=== PATIENT | male | born 1965 | race African-American/Black ===

== ENCOUNTER 2017-01-07 22:20 | Emergency (ER) | payer MEDICAID ==
[~2017-01-07] VITALS: Ht 172.7 cm; Wt 70.5 kg
[2017-01-07] MEDS ORDERED: OXYcodone/APAP 5/325MG TABLET PO ONE (23:30)
[2017-01-07] MEDS ORDERED: CYCLOBENZAPRINE 10 MG TABLET PO ONE (23:30)
[2017-01-07] MEDS ORDERED: CEFTRIAXONE 250 MG IM ONE (23:30)
[2017-01-07] MEDS ORDERED: ONDANSETRON ODT 4 MG PO ONE (23:30)
[2017-01-07] MEDS ORDERED: AZITHROMYCIN 500 MG TABLET PO ONE (23:30)
[2017-01-07] MEDS ORDERED: OXYcodone/APAP 5/325MG TABLET ONE (23:58)
[2017-01-07] MEDS ORDERED: CYCLOBENZAPRINE 10 MG TABLET ONE (23:58)
[2017-01-07] MEDS ORDERED: ONDANSETRON ODT 4 MG ONE (23:59)
[2017-01-07] MEDS ORDERED: CEFTRIAXONE 250 MG ONE (23:59)
[2017-01-07] MEDS ORDERED: AZITHROMYCIN 250 MG TABLET ONE (23:59)
[2017-01-08 01:27] VITALS: BP 139/87
== END 2017-01-08 01:29 | disposition home or self-care (01) ==
LOC: ED 01-08 00:38
DX: N34.1 Nonspecific urethritis (principal); R07.89 Other chest pain; M62.830 Muscle spasm of back; F17.200 Nicotine dependence, unspecified, uncomplicated; Z88.6 Allergy status to analgesic agent
CPT/HCPCS: 81001; 87086; 93005; 96372; 99285; J0696; Q0162; 87077

== ENCOUNTER 2017-01-17 06:51 | Emergency (ER) | payer MEDICAID ==
[~2017-01-17] VITALS: Ht 172.7 cm; Wt 69.7 kg
[2017-01-17 06:53] VITALS: BP 128/85
== END 2017-01-17 08:01 | disposition home or self-care (01) ==
LOC: ED 07:18
DX: R22.42 Localized swelling, mass and lump, left lower limb (principal); M79.652 Pain in left thigh; G89.29 Other chronic pain
CPT/HCPCS: 99283

== ENCOUNTER 2017-03-05 07:01 | Emergency (ER) | payer MEDICAID ==
[~2017-03-05] VITALS: Ht 172.7 cm; Wt 70.0 kg
[2017-03-05] MEDS ORDERED: ONDANSETRON ODT 4 MG PO ONE (08:00)
[2017-03-05] MEDS ORDERED: ONDANSETRON ODT 4 MG ONE (08:06)
[2017-03-05 08:27] LABS: HEMATOCRIT 37.4 % (39.2-51.8); HEMOGLOBIN 12.4 g/dL (13.7-18.0); WHITE BLOOD COUNT 4.5 x10^3/uL (3.4-10)
[2017-03-05 08:39] LABS: ASPARTATE AMINO TRANSFERASE 42 U/L (15-37); BLOOD UREA NITROGEN 10 mg/dL (7-18)
[2017-03-05 09:22] VITALS: BP 110/69
== END 2017-03-05 09:26 | disposition home or self-care (01) ==
LOC: ED 07:48
DX: R10.84 Generalized abdominal pain (principal); R11.0 Nausea
CPT/HCPCS: 36415; 80053; 83690; 85025; 93005; 99285; Q0162

== ENCOUNTER 2017-03-27 22:54 | Emergency (ER) | payer MEDICAID ==
[~2017-03-27] VITALS: Ht 172.7 cm; Wt 69.7 kg
[2017-03-27 23:08] VITALS: BP 138/96
[2017-03-27] MEDS ORDERED: ACETAMINOPHEN 325 MG TABLET ONE (23:43)
[2017-03-28] MEDS ORDERED: ACETAMINOPHEN 325 MG TABLET PO ONE
== END 2017-03-27 23:50 | disposition home or self-care (01) ==
LOC: ED 23:47
DX: N34.2 Other urethritis (principal); F15.10 Other stimulant abuse, uncomplicated; Z91.19 Patient's noncompliance with other medical treatment and regimen; Z59.0 Homelessness
CPT/HCPCS: 99282

== ENCOUNTER 2017-03-28 10:35 | Emergency (ER) | payer MEDICAID ==
[~2017-03-28] VITALS: Ht 172.7 cm; Wt 67.0 kg
[2017-03-28 10:42] VITALS: BP 128/84
== END 2017-03-28 11:18 | disposition home or self-care (01) ==
LOC: ED 11:00
DX: Z76.0 Encounter for issue of repeat prescription (principal)
CPT/HCPCS: 99283

== ENCOUNTER 2017-05-01 02:46 | Emergency (ER) | payer MEDICAID ==
[~2017-05-01] VITALS: Ht 172.7 cm; Wt 66.1 kg
[2017-05-01] MEDS ORDERED: ACETAMINOPHEN 325 MG TABLET ONE (03:20)
[2017-05-01] MEDS ORDERED: ACETAMINOPHEN 325 MG TABLET PO ONE (03:30)
[2017-05-01 03:32] LABS: RAPID INFLUENZA A POSITIVE (Negative); RAPID INFLUENZA B Negative (Negative)
[2017-05-01 04:08] VITALS: BP 126/86
== END 2017-05-01 04:08 | disposition home or self-care (01) ==
LOC: ED 03:44
DX: J09.X2 Influenza due to identified novel influenza A virus with other respiratory manifestations (principal); J02.9 Acute pharyngitis, unspecified
CPT/HCPCS: 71046; 87400; 93005

== ENCOUNTER 2017-05-12 01:27 | Emergency (ER) | payer MEDICAID ==
[~2017-05-12] VITALS: Ht 172.7 cm; Wt 69.3 kg
[2017-05-12 01:28] VITALS: BP 134/87
== END 2017-05-12 04:23 | disposition home or self-care (01) ==
LOC: ED 02:29
DX: M79.662 Pain in left lower leg (principal); S86.212A Strain of muscle(s) and tendon(s) of anterior muscle group at lower leg level, left leg, initial encounter; X58.XXXA Exposure to other specified factors, initial encounter; Y93.89 Activity, other specified; Y92.89 Other specified places as the place of occurrence of the external cause; Y99.8 Other external cause status; I88.8 Other nonspecific lymphadenitis
CPT/HCPCS: 99284

== ENCOUNTER 2017-05-12 10:37 | Emergency (ER) | payer MEDICAID, OTHER ==
[~2017-05-12] VITALS: Ht 172.7 cm; Wt 67.2 kg
[2017-05-12 10:39] VITALS: BP 138/92
[2017-05-12] MEDS ORDERED: ACETAMINOPHEN 325 MG TABLET PO ONE (12:00)
[2017-05-12] MEDS ORDERED: ACETAMINOPHEN 500 MG TABLET PO ONE (12:00)
[2017-05-12] MEDS ORDERED: ACETAMINOPHEN 500 MG TABLET ONE (12:03)
== END 2017-05-12 12:14 | disposition home or self-care (01) ==
LOC: ED 12:00
DX: M79.662 Pain in left lower leg (principal); Z88.6 Allergy status to analgesic agent
CPT/HCPCS: 99282

== ENCOUNTER 2017-07-18 23:48 | Emergency (ER) | payer MEDICAID ==
[~2017-07-18] VITALS: Ht 172.7 cm; Wt 68.3 kg
[2017-07-18 23:50] VITALS: BP 134/89
== END 2017-07-19 00:11 | disposition left against medical advice (07) ==
LOC: ED 07-19 00:05
DX: R05 Cough (principal); R09.81 Nasal congestion; Z53.21 Procedure and treatment not carried out due to patient leaving prior to being seen by health care provider

== ENCOUNTER 2017-10-16 23:07 | Emergency (ER) | payer MEDICAID ==
[~2017-10-16] VITALS: Ht 172.7 cm; Wt 68.0 kg
[2017-10-16 23:18] VITALS: BP 112/82
[2017-10-17 00:17] LABS: ALANINE AMINOTRANSFERASE 30 U/L (12-78); ALBUMIN 3.5 g/dL (3.4-5.0); ANION GAP 9 mmol/L (5-15); CALCIUM 9.3 mg/dL (8.5-10.1); CHLORIDE 105 mmol/L (98-107)
[2017-10-17 00:20] LABS: ALKALINE PHOSPHATASE 101 U/L (45-117); BILIRUBIN,TOTAL 0.5 mg/dL (0.2-1.0)
[2017-10-17 01:57] LABS: BASOPHILS # (AUTO) 0.03 x10^3/uL (0-0.1); BASOPHILS % (AUTO) 1 % (0-1); EOSINOPHILS # (AUTO) 0.02 x10^3/uL (0-0.4); EOSINOPHILS % (AUTO) 0 % (1-7); LYMPHOCYTES # (AUTO) 1.49 x10^3/uL (1-3.4); LYMPHOCYTES % (AUTO) 23 % (22-44); MD NO; MEAN CORPUSCULAR HEMOGLOBIN 28.8 pg (27.5-34.5); MEAN CORPUSCULAR HGB CONC 33.2 g/dL (33.2-36.2); MEAN CORPUSCULAR VOLUME 86.7 fL (81-97); MEAN PLATELET VOLUME 8.3 fL (7.4-10.4); MONOCYTES # (AUTO) 0.42 x10^3/uL (0.2-0.8); MONOCYTES % (AUTO) 7 % (2-9); NEUTROPHILS # (AUTO) 4.49 x10^3/uL (1.8-6.8); NEUTROPHILS % (AUTO) 70 % (42-75); PLATELET COUNT 179 x10^3/uL (130-400); RED BLOOD COUNT 4.68 x10^6/uL (4.38-5.82); RED CELL DISTRIBUTION WIDTH 15.6 % (9.4-14.8)
== END 2017-10-17 00:40 | disposition left against medical advice (07) ==
LOC: ED 23:34
DX: S61.412A Laceration without foreign body of left hand, initial encounter (principal); S39.91XA Unspecified injury of abdomen, initial encounter; S39.93XA Unspecified injury of pelvis, initial encounter; Z88.6 Allergy status to analgesic agent; W19.XXXA Unspecified fall, initial encounter; Y93.89 Activity, other specified; Y99.8 Other external cause status; Y92.89 Other specified places as the place of occurrence of the external cause
CPT/HCPCS: 36415; 80053; 83690; 85025; 99281; 99284

== ENCOUNTER 2019-06-08 03:31 | Emergency (ER) | payer MEDICAID ==
[~2019-06-08] VITALS: Ht 167.6 cm; Wt 74.9 kg
[2019-06-08 03:36] VITALS: BP 148/99
== END 2019-06-08 04:26 | disposition home or self-care (01) ==
LOC: ED 04:25
DX: K40.90 Unilateral inguinal hernia, without obstruction or gangrene, not specified as recurrent (principal); F17.210 Nicotine dependence, cigarettes, uncomplicated
CPT/HCPCS: 99284

== ENCOUNTER 2019-06-12 21:21 | Emergency (ER) | payer MEDICAID | END 2019-06-12 21:46 | LOC: ED 21:42 | DX: R42 Dizziness and giddiness (principal); Z53.21 Procedure and treatment not carried out due to patient leaving prior to being seen by health care provider ==

== ENCOUNTER 2019-06-13 03:12 | Emergency (ER) | payer MEDICAID ==
[~2019-06-13] VITALS: Ht 172.7 cm; Wt 71.9 kg
[2019-06-13 03:15] VITALS: BP 132/86
--- NOTE | 2019-06-13 03:35 | NUR ---
PT STATED TO THIS RN THAT HE LEFT SOME MONEY UNDER THE STAIRS AT HIS MOT[facility] AND NEEDED TO LEAVE TO GET IT. PT WAS INFORMED IF HE LEFT THE EMERGENCY DEPARTMENT HE WOULD NEED TO CHECK BACK IN WHEN HE RETURNED. PT KEPT WALKING OUT THE AMBULANCE BAY
== END 2019-06-13 03:36 ==
LOC: ED 03:30
DX: R11.10 Vomiting, unspecified (principal); Z53.21 Procedure and treatment not carried out due to patient leaving prior to being seen by health care provider

== ENCOUNTER 2019-07-11 06:59 | Emergency (ER) | payer MEDICAID ==
--- NOTE | 2019-07-11 07:19 | NUR ---
Report from Heather SWEET, pt was BIB by [facility], per [facility] c/o of LLQ abd pain, no N/V/D, FSBS 91. Pt currently refusing to talk to ETHAN Bronson or cooperate w/ provider assessment.
--- NOTE | 2019-07-11 08:00 | NUR ---
Late Entry: Pt resting in gurney, even and unabored respirations, eyes closed, call light within reach, NAD, WCTM.
[2019-07-11 08:09] LABS: BASOPHILS # (AUTO) 0.01 x10^3/uL (0-0.1); BASOPHILS % (AUTO) 0 % (0-1); EOSINOPHILS # (AUTO) 0.01 x10^3/uL (0-0.4); EOSINOPHILS % (AUTO) 0 % (1-7); LYMPHOCYTES % (AUTO) 39 % (22-44); MD NO; MEAN CORPUSCULAR HEMOGLOBIN 29.9 pg (27.5-34.5); MEAN CORPUSCULAR HGB CONC 33.3 g/dL (33.2-36.2); MEAN CORPUSCULAR VOLUME 89.8 fL (81-97); MEAN PLATELET VOLUME 7.5 fL (7.4-10.4); MONOCYTES # (AUTO) 0.17 x10^3/uL (0.2-0.8); MONOCYTES % (AUTO) 4 % (2-9); NEUTROPHILS # (AUTO) 2.18 x10^3/uL (1.8-6.8); NEUTROPHILS % (AUTO) 56 % (42-75); PLATELET COUNT 206 x10^3/uL (130-400); RED BLOOD COUNT 5.11 x10^6/uL (4.38-5.82); RED CELL DISTRIBUTION WIDTH 15.1 % (9.4-14.8)
[2019-07-11 08:17] LABS: ALANINE AMINOTRANSFERASE 129 U/L (12-78); ALBUMIN 3.9 g/dL (3.4-5.0); ANION GAP 9 mmol/L (5-15); CALCIUM 9.1 mg/dL (8.5-10.1); CHLORIDE 98 mmol/L (98-107); CREATININE 0.84 mg/dL (0.7-1.3)
[2019-07-11 08:19] LABS: ALKALINE PHOSPHATASE 112 U/L (45-117); BILIRUBIN,TOTAL 0.6 mg/dL (0.2-1.0); TOTAL PROTEIN 8.4 g/dL (6.4-8.2)
--- NOTE | 2019-07-11 09:21 | NUR ---
Pt resting in gurney, denies additional needs at this time, even and unlabored respirations, NAD, call light within reach, WCTM.
--- NOTE | 2019-07-11 09:36 | NUR ---
Per ETHAN Bronson, urine not required for pt DC. Pt refused urine. Pt resting in [facility], NAD, call light within reach.
[2019-07-11 09:43] VITALS: BP 120/79
== END 2019-07-11 09:48 | disposition home or self-care (01) ==
LOC: ED 08:01
DX: R10.32 Left lower quadrant pain (principal); R74.0 Nonspecific elevation of levels of transaminase and lactic acid dehydrogenase [LDH]; R11.2 Nausea with vomiting, unspecified
CPT/HCPCS: 36415; 80053; 80307; 83690; 85025; 99283

== ENCOUNTER 2019-07-11 12:18 | Emergency (ER) | payer MEDICAID ==
--- NOTE | 2019-07-11 12:37 | NUR ---
NA X 1 @ 1233
--- NOTE | 2019-07-11 12:46 | NUR ---
NA X 2 2080, 0029
--- NOTE | 2019-07-11 12:58 | NUR ---
NA X 3 1235, 1245, 3421
== END 2019-07-11 13:00 | disposition left against medical advice (07) ==
LOC: ED 12:54
DX: R10.9 Unspecified abdominal pain (principal); Z53.21 Procedure and treatment not carried out due to patient leaving prior to being seen by health care provider

== ENCOUNTER 2019-07-23 00:35 | Emergency (ER) | payer MEDICAID, OTHER ==
[~2019-07-23] VITALS: Ht 172.7 cm; Wt 73.4 kg
[2019-07-23 00:37] VITALS: BP 130/90
== END 2019-07-23 01:32 | disposition home or self-care (01) ==
LOC: ED 01:00
DX: K40.90 Unilateral inguinal hernia, without obstruction or gangrene, not specified as recurrent (principal); F17.210 Nicotine dependence, cigarettes, uncomplicated
CPT/HCPCS: 99282

== ENCOUNTER 2019-11-14 16:11 | Emergency (ER) | payer MEDICAID ==
[~2019-11-14] VITALS: Ht 172.7 cm; Wt 68.8 kg
[2019-11-14 16:14] VITALS: BP 90/66
[2019-11-14] MEDS ORDERED: SODIUM CHLORIDE 0.9% 1,000ML IVBOLUS ONE (17:30)
[2019-11-14 17:39] LABS: ALANINE AMINOTRANSFERASE 133 U/L (12-78); ALBUMIN 3.2 g/dL (3.4-5.0); ANION GAP 1 mmol/L (5-15); CALCIUM 9.4 mg/dL (8.5-10.1); CHLORIDE 109 mmol/L (98-107); CREATININE 0.99 mg/dL (0.7-1.3)
[2019-11-14 17:44] LABS: ALKALINE PHOSPHATASE 89 U/L (45-117); BILIRUBIN,TOTAL 0.3 mg/dL (0.2-1.0); TOTAL PROTEIN 7.2 g/dL (6.4-8.2); TROPONIN I < 0.015 ng/mL (0.000-0.045)
--- NOTE | 2019-11-14 18:11 | NUR ---
PT PROVIDED WITH COLD WATER AND PAULA CRACKERS PER REQUEST.
--- NOTE | 2019-11-14 18:13 | NUR ---
LAB CALLED TO NOTIFY THAT CBC NEEDS TO BE REDRAWN DUE TO PLATELET CLUMPING.
--- NOTE | 2019-11-14 18:30 | NUR ---
LAB AT BEDSIDE FOR REDRAW.
--- NOTE | 2019-11-14 19:07 | NUR ---
PT PROVIDED WITH DIET TRAY. DENIES ANY FURTHER NEEDS OR CONCERNS AT THIS TIME. CALL LIGHT IN REACH.
--- NOTE | 2019-11-14 19:09 | NUR ---
REPORT RECEIVED FROM GERRI Rosas RN. PLAN OF CARE DISCUSSED
[2019-11-14 19:20] LABS: MD YES; MEAN CORPUSCULAR HEMOGLOBIN 30.6 pg (27.5-34.5); MEAN CORPUSCULAR HGB CONC 32.5 g/dL (33.2-36.2); MEAN CORPUSCULAR VOLUME 94.1 fL (81-97); MEAN PLATELET VOLUME 7.7 fL (7.4-10.4); PLATELET COUNT 209 x10^3/uL (130-400); RED BLOOD COUNT 4.19 x10^6/uL (4.38-5.82); RED CELL DISTRIBUTION WIDTH 14.9 % (9.4-14.8)
[2019-11-14 19:24] LABS: <PLT MORPHOLOGY> NORMAL PLT MORPH; <RBC MORPHOLOGY> NORMAL; EOS#(MANUAL) 0.04 x10^3/uL (0.0-0.4); EOS% (MANUAL) 1 % (1-7); LYMPH#(MANUAL) 1.42 x10^3/uL (1-3.4); LYMPHS% (MANUAL) 33 % (22-44); MONOS#(MANUAL) 0.39 x10^3/uL (0.3-2.7); MONOS% (MANUAL) 9 % (2-9); SEG#(MANUAL) 2.45 x10^3/uL (1.8-6.8); SEGS% (MANUAL) 57 % (42-75)
[2019-11-14 19:25] LABS: <PLATELET ESTIMATE> ADEQUATE
--- NOTE | 2019-11-14 20:45 | NUR ---
Patient given discharge instructions and they have confirmed that they understand the instructions. Patient ambulatory with steady gait.
== END 2019-11-14 20:47 | disposition home or self-care (01) ==
LOC: ED 19:31
DX: R06.00 Dyspnea, unspecified (principal); R07.89 Other chest pain; R94.31 Abnormal electrocardiogram [ECG] [EKG]; F17.200 Nicotine dependence, unspecified, uncomplicated
CPT/HCPCS: 36415; 71045; 80053; 83880; 84484; 85025; 93005; 99285

== ENCOUNTER 2019-11-22 07:36 | Emergency (ER) | payer MEDICAID ==
[~2019-11-22] VITALS: Ht 172.7 cm; Wt 67.3 kg
[2019-11-22 07:39] VITALS: BP 131/91
--- NOTE | 2019-11-22 08:13 | NUR ---
tape and gauze provided for wound care to decrease ambulatory friction. education provided in regard to follow up and home care. pt is agreeable and appreciative. we are awaiting d/c at this time.
== END 2019-11-22 08:34 | disposition home or self-care (01) ==
LOC: ED 08:14
DX: K40.90 Unilateral inguinal hernia, without obstruction or gangrene, not specified as recurrent (principal); L84 Corns and callosities
CPT/HCPCS: 99281

== ENCOUNTER 2019-12-31 13:20 | Emergency (ER) | payer MEDICAID ==
[~2019-12-31] VITALS: Ht 172.7 cm; Wt 66.6 kg
--- NOTE | 2019-12-31 13:35 | NUR ---
PATIENT PLACEMENT COORDINATOR NOTE: EKG TAKEN BY EDT IN TRIAGE, REVIEWED BY EDMD REILLY. PER EDMD, REPEAT EKG TO BE TAKEN IN 5 MIN.
--- NOTE | 2019-12-31 13:40 | NUR ---
RECEIVING RN NOTIFIED OF NEED FOR REPEAT EKG
--- NOTE | 2019-12-31 13:46 | NUR ---
THIS IS A 54 YO M W/ C/O SUDDEN ONSET NAUSEA AND EPIGASTRIC PAIN STARTING THIS MORNING. PT DROWSY, EASILY AROUSED BY VOICE. PT DENIES DRUG USE. PT CONNECTED TO ALL MONITORING. VS WDL. RESP EVEN AND UNLABORED, NADN. MARY KATE LONG AT BEDSIDE FOR ED EVAL.
--- NOTE | 2019-12-31 13:57 | NUR ---
LAB AND RAD IN ROOM.
[2019-12-31] MEDS ORDERED: FAMOTIDINE 20 MG TABLET PO ONE (14:00)
[2019-12-31] MEDS: MAALOX/HYOSCYAMINE/LIDOCAINE 45 ML BTL PO ONE ×2 (14:00→14:09)
[2019-12-31] MEDS ORDERED: MAALOX/HYOSCYAMINE/LIDOCAINE 45 ML BTL ONE (14:05)
[2019-12-31] MEDS ORDERED: FAMOTIDINE 20 MG TABLET ONE (14:05)
--- NOTE | 2019-12-31 14:09 | NUR ---
PT REFUSING TO DRINK GI COCKTAIL AT THIS TIME.
[2019-12-31 14:14] LABS: BASOPHILS # (AUTO) 0.04 x10^3/uL (0-0.1); BASOPHILS % (AUTO) 1 % (0-1); EOSINOPHILS % (AUTO) 0 % (1-7); LYMPHOCYTES # (AUTO) 1.27 x10^3/uL (1-3.4); LYMPHOCYTES % (AUTO) 25 % (22-44); MD NO; MEAN CORPUSCULAR HGB CONC 33.4 g/dL (33.2-36.2); MEAN CORPUSCULAR VOLUME 92.8 fL (81-97); MEAN PLATELET VOLUME 7.5 fL (7.4-10.4); MONOCYTES # (AUTO) 0.27 x10^3/uL (0.2-0.8); MONOCYTES % (AUTO) 5 % (2-9); NEUTROPHILS # (AUTO) 3.41 x10^3/uL (1.8-6.8); NEUTROPHILS % (AUTO) 68 % (42-75); PLATELET COUNT 183 x10^3/uL (130-400); RED CELL DISTRIBUTION WIDTH 14.4 % (9.4-14.8)
[2019-12-31 14:24] LABS: ALANINE AMINOTRANSFERASE 58 U/L (12-78); ALBUMIN 3.7 g/dL (3.4-5.0); ANION GAP 7 mmol/L (5-15); CALCIUM 8.6 mg/dL (8.5-10.1); CHLORIDE 104 mmol/L (98-107); CREATININE 0.91 mg/dL (0.7-1.3)
[2019-12-31 14:28] LABS: ALKALINE PHOSPHATASE 93 U/L (45-117); BILIRUBIN,TOTAL 0.7 mg/dL (0.2-1.0); TOTAL PROTEIN 7.8 g/dL (6.4-8.2); TROPONIN I < 0.015 ng/mL (0.000-0.045)
[2019-12-31 14:54] VITALS: BP 113/80
--- NOTE | 2019-12-31 15:35 | NUR ---
Patient given discharge instructions and they have confirmed that they understand the instructions. Patient ambulatory with steady gait.
[2019-12-31] MEDS ORDERED: HALOPERIDOL 5 MG/ML ONE (17:01)
== END 2019-12-31 15:37 | disposition home or self-care (01) ==
LOC: ED 15:12
DX: K29.20 Alcoholic gastritis without bleeding (principal); R07.2 Precordial pain; R10.13 Epigastric pain; R94.31 Abnormal electrocardiogram [ECG] [EKG]; F10.10 Alcohol abuse, uncomplicated; Z72.9 Problem related to lifestyle, unspecified; Y90.0 Blood alcohol level of less than 20 mg/100 ml
CPT/HCPCS: 36415; 71045; 80053; 83690; 84484; 85025; 93005; 99285

== ENCOUNTER 2020-01-05 14:08 | Emergency (ER) | payer MEDICAID ==
[~2020-01-05] VITALS: Ht 172.7 cm; Wt 66.9 kg
[2020-01-05 14:50] LABS: MICROSCOPIC NOT IND
[2020-01-05 14:58] LABS: MEAN CORPUSCULAR HEMOGLOBIN 30.7 pg (27.5-34.5); MEAN CORPUSCULAR HGB CONC 32.7 g/dL (33.2-36.2); MEAN CORPUSCULAR VOLUME 93.8 fL (81-97); MEAN PLATELET VOLUME 7.2 fL (7.4-10.4); PLATELET COUNT 197 x10^3/uL (130-400); RED CELL DISTRIBUTION WIDTH 14.5 % (9.4-14.8)
[2020-01-05 15:08] LABS: ALANINE AMINOTRANSFERASE 61 U/L (12-78); ALBUMIN 3.6 g/dL (3.4-5.0); ANION GAP 3 mmol/L (5-15); CHLORIDE 105 mmol/L (98-107); CREATININE 0.86 mg/dL (0.7-1.3)
[2020-01-05 15:10] LABS: ALKALINE PHOSPHATASE 105 U/L (45-117); BILIRUBIN,TOTAL 0.4 mg/dL (0.2-1.0); TOTAL PROTEIN 7.8 g/dL (6.4-8.2)
--- NOTE | 2020-01-05 15:31 | NUR ---
PT C/O OF SHARP PAINS IN HIS BACK AND FEELING LIGHT HEADED. IN ADDITION, PT HAS AN UPSET STOMACH AND DIARRHEA.
--- NOTE | 2020-01-05 15:34 | NUR ---
PT ASSISTED TO THE SHOWER DUE TO CLOTHES BEING SOILED BY DIARRHEA. PT BACK IN ROOM AND PLACED IN POSTITION OF COMFORT. AWAITING FURTHER ORDERS.
[2020-01-05 15:39] LABS: BASOPHILS # (AUTO) 0.03 x10^3/uL (0-0.1); BASOPHILS % (AUTO) 1 % (0-1); EOSINOPHILS # (AUTO) 0.03 x10^3/uL (0-0.4); EOSINOPHILS % (AUTO) 1 % (1-7); LYMPHOCYTES # (AUTO) 1.96 x10^3/uL (1-3.4); LYMPHOCYTES % (AUTO) 53 % (22-44); MD SCAN; MONOCYTES # (AUTO) 0.25 x10^3/uL (0.2-0.8); MONOCYTES % (AUTO) 7 % (2-9); NEUTROPHILS # (AUTO) 1.41 x10^3/uL (1.8-6.8); NEUTROPHILS % (AUTO) 38 % (42-75)
--- NOTE | 2020-01-05 16:20 | NUR ---
DELAYED NOTE DUE TO PATIENT CARE. AWAITING DISPO. PT RESTING COMFORTABLY.
[2020-01-05] MEDS ORDERED: METHOCARBAMOL 750 MG TABLET PO ONE (16:30)
[2020-01-05 17:35] VITALS: BP 137/66
--- NOTE | 2020-01-05 17:38 | NUR ---
PT AMBULATED TO SD DESK. STEADY GAIT.
== END 2020-01-05 17:46 | disposition home or self-care (01) ==
LOC: ED 16:26
DX: S29.012A Strain of muscle and tendon of back wall of thorax, initial encounter (principal); K40.91 Unilateral inguinal hernia, without obstruction or gangrene, recurrent; R19.7 Diarrhea, unspecified; X58.XXXA Exposure to other specified factors, initial encounter; Y93.89 Activity, other specified; Y92.89 Other specified places as the place of occurrence of the external cause; Y99.8 Other external cause status
CPT/HCPCS: 36415; 71045; 80053; 81003; 85025; 93005; 99285

== ENCOUNTER 2020-03-03 03:41 | Emergency (ER) | payer MEDICAID ==
[~2020-03-03] VITALS: Ht 175.3 cm; Wt 70.9 kg
--- NOTE | 2020-03-03 03:45 | NUR ---
DRAFTER ASSISTANT: PT CALLED FOR TRIAGE, NO ANSWER. REGISTRATION STATES PT WENT TO RESTROOM
[2020-03-03 03:53] VITALS: BP 121/82
== END 2020-03-03 04:02 | disposition left against medical advice (07) ==
LOC: ED 03:55
DX: Z53.21 Procedure and treatment not carried out due to patient leaving prior to being seen by health care provider (principal)